=== PATIENT | female | born 1975 | race Caucasian/White ===

== ENCOUNTER 2025-02-18 12:25 | Emergency (ER) | payer MEDICAID, SELFPAY ==
[2025-02-18 12:49] VITALS: BP 147/80; PULSE 84; TEMP 36.6; O2SAT 98; BMI 30.2
--- NOTE | 2025-02-18 12:54 | XR_ITS ---
Examination: CT abdomen and pelvis without contrast. Coronal 3-D reconstructions. Sagittal 2-D reconstructions. Date and time of exam:February 18, 2025 1535 hours Comparison January 23, 2024 INDICATION: Mid abdominal pain and cramping with vomiting today CTDI: vol (mGy): 9.95 DLP: (mGycm): 591 Technique: Axial images of the abdomen have been obtained, 3 mm slice thickness Intravenous contrast material has not been administered. Low dose protocols were performed. One or more of the following dose reduction techniques were used; automated exposure control, adjustment of the mA and/or KV according to patient size, use of iterative reconstruction technique. Findings: No pancreatic or adrenal mass No renal or ureteral calculi, no hydronephrosis Aorta normal size 6 mm fat-containing umbilical hernia Normal appendix No bowel obstruction No diverticulitis Anteverted uterus No adnexal mass Contracted urinary bladder Mild thoracic and lumbar spondylosis IMPRESSION: No acute process in the abdomen or pelvis Consider hepatobiliary sonography follow-up
--- NOTE | 2025-02-18 12:54 | PD.EDRME ---
Rapid Medical Screening Exam RME Arrival date/time: 02/18/25 12:25 49-year-old female with no known medical history presents to the emergency room with a chief complaint of vomiting, 10 out of 10 abdominal pain that began at 9 AM this morning. Patient states she believes she ate something bad. I have greeted and performed a focused initial assessment of this patient. A comprehensive ED assessment and evaluation of the patient, analysis of all test results, and completion of the medical decision making process will be conducted by additional ED providers. Chief Complaint: Nausea/Vomiting/Diarrhea Time Seen by Provider: 02/18/25 12:40 Vital signs reviewed by provider: Yes
[2025-02-18] MEDS: KETOROLAC INJ 60 MG/2 ML VIAL 30 MG IM (13:09)
[2025-02-18] MEDS: ONDANSETRON ODT 4 MG TABRAP PO (13:09)
[2025-02-18 13:41] LABS: Basophils # (Auto) 0.1 Thou/mm3 (0.0-0.2); Basophils % (Auto) 1 % (0-2.5); Eosinophils # (Auto) 0.1 Thou/mm3 (0.0-0.5); Eosinophils % (Auto) 1 % (0-10); Hematocrit 44.5 % (36.0-46.0); Hemoglobin 15.3 g/dL (12.0-16.0); Immature Granulocytes % (Auto) 0 % (0-0); Immature Granulocytes Auto 0.04 Thou/mm3 (0.00-0.00); Lymphocytes % (Auto) 17 % (10-50); Mean Corpuscular HGB Conc 34.4 g/dl (31.0-37.0); Mean Corpuscular Hemoglobin 29.8 pg (25.0-35.0); Mean Corpuscular Volume 87 fL (80-100); Monocytes # (Auto) 0.5 Thou/mm3 (0.0-0.8); Monocytes % (Auto) 4 % (0-12); Neutrophils # (Auto) 9.3 Thou/mm3 (1.8-7.7); Neutrophils % (Auto) 77 % (37-80); Nucleated Red Blood Cell % 0 /100 WBC (0); Platelet Count 635 Thou/mm3 (140-440); RDW Standard Deviation 40.7 fL (36.4-46.3); Red Blood Count 5.14 Miln/mm3 (4.00-5.20)
[2025-02-18 14:04] LABS: Alanine Aminotransferase 33 U/L (10-49); Albumin/Globulin Ratio 1.9 (1.2-2.2); Alkaline Phosphatase 75 U/L (46-116); Anion Gap 10 (7-16); Aspartate Amino Transferase 22 U/L (0-34); BUN/Creatinine Ratio 12 Ratio (12-20); Bilirubin,Total 1.1 mg/dL (0.3-1.2); Blood Urea Nitrogen 11 mg/dL (9-23); Calcium 9.7 mg/dL (8.3-10.6); Calcium (Corrected) 9.7 mg/dL (8.5-10.1); Carbon Dioxide 26.9 mMol/L (20.0-31.0); Chloride 106 mMol/L (98-107); Creatinine (Component) 0.9 mg/dL (0.6-1.3); Estimated Creatinine Clearance 75.6 mL/min (>60); Globulin 2.6 gm/dL (2.3-3.5); Glucose 190 mg/dL (74-106); Lipase 45 U/L (12-53); Osmolality,Calculated 289 (275-295); Potassium 4.1 mMol/L (3.4-5.1); Sodium 143 mMol/L (136-145); Total Protein 7.6 gm/dL (5.7-8.2); eGFR > 60 See Note
[2025-02-18 15:53] LABS: HCG,Qualitative Serum Negative
[2025-02-18 19:41] VITALS: BP 181/110; PULSE 106; RESP 20; TEMP 36.9; O2SAT 98
--- NOTE | 2025-02-18 19:51 | EDNOTE_ITS ---
Nausea/Vomit./Diarrhea-RME/HPI General Chief complaint: Nausea/Vomiting/Diarrhea Stated complaint: CYCLIC VOMITING W/ ABD PAIN Time Seen by Provider: 02/18/25 12:40 Arrival date/time: 02/18/25 12:25 49-year-old female presents to the ED with a complaint of nausea, vomiting, abdominal cramping since 9 AM this morning. She states she has very dry and has been unable to urinate because every time she vomits she urinates. RME / HPI RME / HPI Narrative: 02/18/25 12:25 49-year-old female with no known medical history presents to the emergency room with a chief complaint of vomiting, 10 out of 10 abdominal pain that began at 9 AM this morning. Patient states she believes she ate something bad. I have greeted and performed a focused initial assessment of this patient. A comprehensive ED assessment and evaluation of the patient, analysis of all test results, and completion of the medical decision making process will be conducted by additional ED providers. Related Data Previous Rx's ?Medication ?Instructions ?Recorded albuterol sulfate 90 mcg/actuation 2 inh inhalation QI D PRN shortness 06/01/19 breath activated powder inhaler of breath or wheezing #1 ea prednisone 50 mg tablet 50 mg PO QDAY #4 tabs dicyclomine 20 mg tablet 20 mg PO TID #20 tabs Allergies Allergy/AdvReac Type Severity Reaction Status Date / Time codeine Allergy Severe EYES SWELL Verified 02/18/25 12:28 Review of Systems Review of Systems Systems Reviewed: All systems reviewed, normal except as documented Past Medical History Past Medical History CARDIAC: Positive Hypertension; Negative Cardiac Disorders or Congestive Heart Failure RESPIRATORY: Negative Chronic Obstructive Pulmonary Disease (COPD) or Asthma GENITOURINARY: Negative Renal Disease ENDOCRINE: Negative Diabetes Mellitus Type 1 or Diabetes Mellitus Type 2 HEMATOLOGIC: Negative Sickle Cell Disease PSYCHO/SOCIAL: Positive Recreational Drug Use Social History SMOKING STATUS: Light (< 1 pack/day) ED Exam Narrative Physical exam: Alert 49 year old female, mild acute distress with vomiting. Lungs are clear, no respiratory distress. Regular rate and rhythm. Non-distended abdomen. Course Course Course Narrative: 49-year-old female presents to the ED with a complaint of nausea, vomiting, abdominal cramping since 9 AM this morning. She states she has very dry and has been unable to urinate because every time she vomits she urinates. Alert 49 year old female, mild acute distress with vomiting. Lungs are clear, no respiratory distress. Regular rate and rhythm. Non-distended abdomen. Labs reveal an elevated white count of 12.0, normal H&H, elevated platelets of 635. ANC elevated at 9.3. Chemistry panel reveals normal sodium, potassium, chloride. Normal CO2 and gap. Normal renal function and normal LFTs. Glucose is elevated at 190. Amylase is normal at 45 and urine hCG is negative. Urinalysis reveals turbid yellow urine with a specific gravity of 1.030 with 2+ protein no RBCs or WBCs, 5 epithelial cells and no bacteria. Urine drug screen is positive for marijuana and opiates. CT of the abdomen and pelvis reveals: Findings:No pancreatic or adrenal mass. No renal or ureteral calculi, no hydronephrosis. Aorta normal size. 6 mm fat-containing umbilical hernia. Normal appendix. No bowel obstruction. No diverticulitis. Anteverted uterus. No adnexal mass. Contracted urinary bladder. Mild thoracic and lumbar spondylosis. IMPRESSION: No acute process in the abdomen or pelvis Patient was given Toradol 30 mg IM, ondansetron 4 mg p.o., and Reglan 10 mg p.o. She was then given dicyclomine 20 mg p.o. After evaluation, [facility] bed. Quality Measures none Orders Category Date Time Status CT abdomen pelvis wo con Stat Exams 02/18/25 12:54 Completed CBC Stat Lab 02/18/25 13:10 Completed CMP [Comprehensive Metabolic Panel] Stat Lab 02/18/25 13:10 Completed Drug Screen,Urine Stat Lab 02/18/25 20:03 Completed HCG Qualitative,Urine Stat Lab 02/18/25 20:03 Completed HCG,Qualitative Serum Stat Lab 02/18/25 13:10 Completed Lipase Stat Lab 02/18/25 13:10 Completed UA [Urinalysis] Stat Lab 02/18/25 20:03 Completed Urine Culture Stat Lab 02/18/25 20:03 Received Dicyclomine [Bentyl] Med 02/18/25 19:52 Discontinued 20 mg PO X1 ONE Ketorolac Inj [Toradol Inj] Med 02/18/25 12:54 Discontinued 30 mg IM X1 ONE Metoclopramide [Reglan] Med 02/18/25 12:54 Discontinued 10 mg PO X1 ONE Ondansetron Odt [Zofran Odt] Med 02/18/25 13:05 Discontinued 4 mg PO X1 ONE Vital Signs Vital signs: Vital Signs Temperature 97.9 F 02/18/25 12:49 Pulse Rate 84 02/18/25 12:49 Blood Pressure 147/80 H 02/18/25 12:49 Pulse Oximetry (%) 98 02/18/25 12:49 Oxygen Delivery Method Room Air 02/18/25 12:49 Nausea/Vomiting/Diarrhea MDM Narrative MDM Narrative:: 49-year-old female presents to the ED with a complaint of nausea, vomiting, abdominal cramping since 9 AM this morning. She states she has very dry and has been unable to urinate because every time she vomits she urinates. Alert 49 year old female, mild acute distress with vomiting. Lungs are clear, no respiratory distress. Regular rate and rhythm. Non-distended abdomen. Labs reveal an elevated white count of 12.0, normal H&H, elevated platelets of 635. ANC elevated at 9.3. Chemistry panel reveals normal sodium, potassium, chloride. Normal CO2 and gap. Normal renal function and normal LFTs. Glucose is elevated at 190. Amylase is normal at 45 and urine hCG is negative. Urinalysis reveals turbid yellow urine with a specific gravity of 1.030 with 2+ protein no RBCs or WBCs, 5 epithelial cells and no bacteria. Urine drug screen is positive for marijuana and opiates. CT of the abdomen and pelvis reveals: Findings:No pancreatic or adrenal mass. No renal or ureteral calculi, no hydronephrosis. Aorta normal size. 6 mm fat-containing umbilical hernia. Normal appendix. No bowel obstruction. No diverticulitis. Anteverted uterus. No adnexal mass. Contracted urinary bladder. Mild thoracic and lumbar spondylosis. IMPRESSION: No acute process in the abdomen or pelvis Patient was given Toradol 30 mg IM, ondansetron 4 mg p.o., and Reglan 10 mg p.o. She was then given dicyclomine 20 mg p.o. After evaluation, she was sent to the lobby to wait for an open bed. Patient data External records reviewed:: None Clinical information provided by:: patient Social determinants that could affect healthcare access:: none Patient has the following chronic illnesses:: Previous history of Abdominal Cramping. Marijuana use. How is presenting disease/condition affected by chronic disease/condition?: no chronic disease Evaluation data The following diagnostics were reviewed and interpreted by me:: lab results and radiology exam(s) Lab and/or radiology exams considered but not ordered:: N/A Interpretation Summary: Labs reveal an elevated white count of 12.0, normal H&H, elevated platelets of 635. ANC elevated at 9.3. Chemistry panel reveals normal sodium, potassium, chloride. Normal CO2 and gap. Normal renal function and normal LFTs. Glucose is elevated at 190. Amylase is normal at 45 and urine hCG is negative. Urinalysis reveals turbid yellow urine with a specific gravity of 1.030 with 2+ protein no RBCs or WBCs, 5 epithelial cells and no bacteria. Urine drug screen is positive for marijuana and opiates. CT of the abdomen and pelvis reveals: Findings:No pancreatic or adrenal mass. No renal or ureteral calculi, no hydronephrosis. Aorta normal size. 6 mm fat-containing umbilical hernia. Normal appendix. No bowel obstruction. No diverticulitis. Anteverted uterus. No adnexal mass. Contracted urinary bladder. Mild thoracic and lumbar spondylosis. IMPRESSION: No acute process in the abdomen or pelvis Patient was given Toradol 30 mg IM, ondansetron 4 mg p.o., and Reglan 10 mg p.o. She was then given dicyclomine 20 mg p.o. After evaluation, she was sent to the lobby to wait for an open bed. Patient ultimately ELOPED from the ED waiting room without discharge instructions or prescriptions. Medications / Prescriptions Medications / Prescriptions considered but not ordered:: N/A Medication administrations:: Medication Administration History Discontinued Medications Dicyclomine HCl (Dicyclomine 10 Mg Capsule) 20 mg PO X1 ONE Stop: 02/18/25 19:53 Last Admin: 02/18/25 20:09 Dose: 20 mg Documented By: TANG Ketorolac Tromethamine (Ketorolac Inj 60 Mg/2 Ml Vial) 30 mg IM X1 ONE Stop: 02/18/25 12:55 Last Admin: 02/18/25 13:09 Dose: 30 mg Documented By: NOLVIA Metoclopramide HCl (Metoclopramide 5 Mg Tablet) 10 mg PO X1 ONE Stop: 02/18/25 12:55 Last Admin: 02/18/25 13:09 Dose: Not Given Documented By: NOLVIA Non-Admin Reason: Discontinued Ondansetron HCl (Ondansetron Odt 4 Mg Tabrap) 4 mg PO X1 ONE; Protocol Stop: 02/18/25 13:06 Last Admin: 02/18/25 13:09 Dose: 4 mg Documented By: NOLVIA Patient was given Toradol 30 mg IM, ondansetron 4 mg p.o., and Reglan 10 mg p.o. She was then given dicyclomine 20 mg p.o. Consultations Consultation(s) initiated? (list below): No Diagnosis Nausea Differential Diagnosis: food poisoning, gastroenteritis, drug-induced nausea and vomiting, dehydration and other (SBO, Diverticulitis) Most likely diagnosis given after review of the tests above:: Drug induced nausea and vomiting. Admission Indicated Admission indicated?: not indicated Explain why admission is indicated or not indicated:: Patient is likely stable for discharge, however patient ELOPED from the ED waiting room. Admission Request Was there a request for admission?: No Disposition Plan Disposition Plan: other (specify) (ELOPED) Discharge Plan Plan Patient Disposition: Elopement Discharge Disposition comment: Stable Prescriptions/Referrals Prescriptions/Med Rec: No Action prednisone 50 mg tablet 50 mg PO QDAY Qty: 4 0RF albuterol sulfate 90 mcg/actuation aerosol powdr breath activated 2 inh INH QID PRN (Reason: shortness of breath or wheezing) Qty: 1 2RF dicyclomine 20 mg tablet 20 mg PO TID Qty: 20 0RF Referrals: No Primary/Family,Physician [Primary Care Provider] - In 1 week Problem List Clinical Impression: Abdominal cramping, Intractable cyclical vomiting with nausea Patient/Caregiver Discharge Instructions Print Language: Belarusian PA/AQUARIUM TANK ATTENDANT Supervising Physician PA/AQUARIUM TANK ATTENDANT Supervising Physician: Dr. Hart
[2025-02-18] MEDS: DICYCLOMINE 10 MG CAPSULE 20 MG PO (20:09)
[2025-02-18 20:15] LABS: Collection Type, Urine Clean Catch; RBC,Urine 0 /hpf (0-3); WBC,Urine 0 /hpf (0-5)
[2025-02-18 20:27] LABS: Bilirubin,Urine Negative (Negative); Blood,Urine Negative (Negative); Clarity,Urine Turbid (Clear/Hazy); Color,Urine Yellow (Lt Yel-Yel); Glucose, Urine Trace (Negative); HCG Qualitative,Urine Negative; Hyaline Casts,Urine < 1 /hpf (0-1); Ketones,Urine Trace (Negative); Leukocyte Esterase,Urine Negative (Negative); Nitrite,Urine Negative (Negative); Protein,Urine 2+ (Neg - Trace); Squamous Epithelial Cell,Urine 5 /hpf (0-5)
[2025-02-18 20:44] LABS: Amphetamine/Methamp Scrn,U Negative (Negative); Barbiturate Screen,Urine Negative (Negative); Benzodiazepines Screen,Urine Negative (Negative); Benzoylecgonine Screen, Ur Negative (Negative); Fentanyl Screen,Urine Negative (Negative); Opiate Screen,Urine Positive (Negative); THC Screen,Urine Positive (Negative)
--- NOTE | 2025-02-19 00:16 | PC.NURSE ---
PT ELOPED THE ER PER SECURITY
== END 2025-02-19 00:17 | disposition left against medical advice (07) ==
PROVIDERS: Nurse Practitioner Family; Emergency Provider Emergency Medicine
DX: R11.2 Nausea with vomiting, unspecified (principal); Z53.29 Procedure and treatment not carried out because of patient's decision for other reasons; R10.9 Unspecified abdominal pain
CPT/HCPCS: 36415; 74176; 80053; 80307; 81001; 81025; 83690; 84703; 85025; 87086; 96372; 99284; J1885; Q0162; A9270

== ENCOUNTER 2025-07-26 17:54 | Emergency (ER) | payer MEDICAID, SELFPAY ==
--- NOTE | 2025-07-26 17:56 | EKG_ITS ---
[facility] Test Date: 2025-07-26 Pat Name: RENAE ABDUL Department: Room: - Gender: Female [employer]: : 1975 Requested By: Robin Martin Order Number: [id number] Reading MD: Robin Martin Measurements Intervals Ledbetter Rate: 88 P: 49 MT: 121 QRS: 56 QRSD: 94 T: 9 QT: 408 QTc: 496 Interpretive Statements SINUS RHYTHM NONSPECIFIC ST & T-WAVE ABNORMALITY No previous ECG available for comparison /store/S0/[id number].pdf
--- NOTE | 2025-07-26 17:58 | EDNOTE_ITS ---
ED General RME/HPI General Chief complaint: Nausea/Vomiting/Diarrhea Stated complaint: ABD PAIN Time Seen by Provider: 07/26/25 17:55 Arrival date/time: 07/26/25 17:54 CC: Left upper quadrant abdominal pain with nausea vomiting HPI ongoing for the past 8 days. Patient presents via EMS who report persistent vomiting and route IV was established patient given Zofran. Patient states she has been noncompliant with all medications for hypertension secondary to the nausea and vomiting prior history of similar events states she has not gotten any precise answers on what causes it. Patient is awake alert oriented moderate discomfort but not in any acute distress. Localized pain is 6-8 on a 10 scale. Patient denies alcohol states she smokes 3 cigarettes a day, takes Gummies THC but last 1 was 3 days ago and denies any other street. Related Data Home Medications ?Medication ?Instructions ?Recorded ?Confirmed fluoxetine 20 mg capsule 40 mg PO DAILY 07/26/2511/18 lisinopril 20 mg tablet 20 mg PO DAILY 07/26/2511/18 Allergies Allergy/AdvReac Type Severity Reaction Status Date / Time codeine Allergy Severe EYES SWELL Verified 07/26/25 18:19 Review of Systems Review of Systems Narrative Review of Systems: GEN: No fever, no chills, no weight loss EYES: No discharge, no visual changes, no pain HEENT: No ear pain, no congestion, no sore throat PULM: No shortness of breath, no cough, no congestion CV: No chest pain, no dyspnea on exertion, no palpitations GI: No nausea, no vomiting, no diarrhea, + pain, no constipation : No frequency, no urgency, no dysuria MUSC/SKEL: No joint pain, no back pain SKIN: No rash PSYCH: No hallucinations, no depression HEME/LYMPH: No easy bleeding or bruising tendencies NEURO: No weakness, no headache Past Medical History Past Medical History CARDIAC: Positive Hypertension; Negative Cardiac Disorders or Congestive Heart Failure RESPIRATORY: Negative Chronic Obstructive Pulmonary Disease (COPD) or Asthma GENITOURINARY: Negative Renal Disease ENDOCRINE: Negative Diabetes Mellitus Type 1 or Diabetes Mellitus Type 2 HEMATOLOGIC: Negative Sickle Cell Disease PSYCHO/SOCIAL: Positive Recreational Drug Use Social History SMOKING STATUS: Light (< 1 pack/day) ED Exam Narrative Physical exam: [General: In mild discomfort but not in any acute distress Head normocephalic HEENT: Within acceptable limits Neck is supple nontender Chest equal chest rise nontender to palpation Respiratory: Clear to auscultation no wheezes crackles or rubs CV: Rate rhythm is regular no murmurs rubs or clicks Abdomen left upper quadrant epigastric tenderness with palpation no right upper quadrant or lower quadrant abdominal pain. Back: No CVA tenderness no spinous process tenderness from cervical spine thoracic and lumbar spine Skin: Intact no petechiae rash induration ulceration or crepitus Extremities: Moving all extremity against resistance cap refill less than 2 seconds neurosensory intact Neuro: Awake alert oriented x3 Glascow coma 15 no focal deficits] Course Course Course Narrative: No acute finding including leukocytosis pancreatitis ultrasound shows no choledocholithiasis. Patient's urine is positive for methamphetamines patient be discharged home with hypokalemia methamphetamine abuse and abdominal pain Quality Measures none Orders Category Date Time Status EKG (ED ONLY) *Do not use* NOW Care 07/26/25 17:56 Completed Saline [Insert IV] NOW Care 07/26/25 17:55 Completed EKG (ED Only) Stat Exams 07/26/25 17:56 Draft US gall bladder Stat Exams 07/26/25 18:58 Taken B-Type Natriuretic Peptide Stat Lab 07/26/25 18:06 Completed CBC Stat Lab 07/26/25 18:06 Completed Comprehensive Metabolic Panel Stat Lab 07/26/25 18:06 Completed Drug Screen,Urine Stat Lab 07/26/25 21:07 Completed Lipase Stat Lab 07/26/25 18:06 Completed Magnesium Stat Lab 07/26/25 18:06 Completed Partial Thromboplastin Time Stat Lab 07/26/25 18:06 Completed Prothrombin Time with INR Stat Lab 07/26/25 18:06 Completed Urinalysis, C/S if Indicated Stat Lab 07/26/25 21:07 Completed Dicyclomine Inj [Bentyl Inj] Med 07/26/25 17:57 Discontinued 10 mg IM X1 ONE POTASSIUM CHL 10% Liq 15 ML Med 07/26/25 21:58 Discontinued 40 meq GT X1 ONE POTASSIUM CHL 10% Liq 15 ML Med 07/26/25 21:58 Discontinued 40 meq PO X1 ONE Potassium Chloride [K-Dur] Med 07/26/25 21:43 Discontinued 40 meq PO X1 ONE Ringers Lactated 1000 ml [Lactated Ringers] 1,000 ml Med 07/26/25 17:56 Discontinued IV 999 mls/hr Vital Signs Vital signs: Vital Signs Temperature 98.1 F 07/26/25 18:08 Pulse Rate 89 07/26/25 18:08 Respiratory Rate 17 07/26/25 18:08 Blood Pressure 181/101 H 07/26/25 18:08 Pulse Oximetry (%) 98 07/26/25 18:08 Oxygen Delivery Method Room Air 07/26/25 18:08 Discharge Plan Plan Patient Disposition: HOME (Self Care) Patient condition on transfer: Stable Prescriptions/Referrals Prescriptions/Med Rec: No Action fluoxetine 20 mg capsule 40 mg PO DAILY Patient Comments: TAKE TWO CAPSULES BY MOUTH EVERY DAY lisinopril 20 mg tablet 20 mg PO DAILY Patient Comments: TAKE ONE TABLET BY MOUTH EVERY DAY FOR BLOOD PRESSURE Referrals: Jen Min PA-C [Primary Care Provider, Family Practice] - In 1 week Problem List Clinical Impression: Abdominal pain, Hypokalemia, Methamphetamine abuse Patient/Caregiver Discharge Instructions Other Activity Instructions:: There is no acute finding in your workup, stop taking methamphetamines as this may contributed to your abdominal pain. Eat more foods i.e. green vegetables that have potassium in there. Follow-up with your primary care doctor. Education Materials: Abdominal Pain, Understanding Methamphetamine ... Print Language: Hungarian Stand Alone Forms: Jazmín Award Info., Patient Portal Info Letter GISSEL Supervising Physician GISSEL Supervising Physician: Robin Perry ENP [facility] Clinical Information Provided by: patient and EMS Medical Records reviewed [facility] and EMS Meds/Rx considered, not ordered None Labs/Rad/Tests considered, not ordered None Chronic Illness/Social Conditions which may negatively complicate care or outcome(s)-explain: None or not applicable EKG Interpretation EKG #1: EKG Interpretation: EKG performed at 1815 shows a ventricular rate of 88 [place] interval 121 QRS of 94 QTc of 454 this is sinus rhythm nonspecific ST segment changes. No old EKG for comparison. Labs Labs: interpreted by ok Lab(s) Interpretation(s): CBC shows no acute leukocytosis no anemia elevated platelet count. Coags within acceptable limits CMP shows potassium 3.1 chloride of 95. Glucose of 180. T. bili of 1.3 AST 44 ALT 86 alk phos of 65 BNP less than 20 UDS is positive for methamphetamines Urine is negative for UTI. Imaging Imaging interpretation: interpreted by ok Imaging Interpretation(s): Ultrasound shows no choledocholithiasis no cholelithiasis. Mild sludge. Medication Administration(s) Medication Administration History Discontinued Medications Dicyclomine HCl (Dicyclomine Inj 10 Mg/Ml 2ml Vial) 10 mg IM X1 ONE Stop: 07/26/25 17:58 Last Admin: 07/26/25 19:58 Dose: 10 mg Documented By: CCT Lactated Ringer's (Lactated Ringers) 1,000 mls @ 999 mls/hr IV .Q1H1M ONE Stop: 07/26/25 18:56 Last Infusion: 07/26/25 21:01 Dose: Infused Documented By: Admin: 07/26/25 19:58 Dose: 999 mls/hr Documented By: CCT Potassium Chloride (Potassium Chloride 20 Meq Tabcr) 40 meq PO X1 ONE Stop: 07/26/25 21:44 Last Admin: 07/26/25 22:02 Dose: Not Given Documented By: CCT Non-Admin Reason: Discontinued Potassium Chloride (Potassium Chloride 10% 20 Meq/15 Ml Udc) 40 meq GT X1 ONE Stop: 07/26/25 21:59 Last Admin: 07/26/25 22:02 Dose: Not Given Documented By: CCT Non-Admin Reason: Discontinued Potassium Chloride (Potassium Chloride 10% 20 Meq/15 Ml Udc) 40 meq PO X1 ONE Stop: 07/26/25 21:59 Last Admin: 07/26/25 22:10 Dose: 40 meq Documented By: CCT Diagnosis Differential Diagnosis ED Complaint MDM: Choledocholithiasis cholelithiasis pancreatitis
[2025-07-26 18:08] VITALS: BP 181/101; PULSE 89; RESP 17; TEMP 36.7; O2SAT 98
[2025-07-26 18:13] VITALS: PULSE 115; RESP 24; O2SAT 99; BMI 30.5
[2025-07-26 18:19] LABS: Basophils # (Auto) 0.1 Thou/mm3 (0.0-0.2); Basophils % (Auto) 1 % (0-2.5); Eosinophils # (Auto) 0.0 Thou/mm3 (0.0-0.5); Eosinophils % (Auto) 0 % (0-10); Hematocrit 46.5 % (36.0-46.0); Hemoglobin 15.7 g/dL (12.0-16.0); Immature Granulocytes Auto 0.04 Thou/mm3 (0.00-0.00); Lymphocytes # (Auto) 2.3 Thou/mm3 (1.0-4.8); Lymphocytes % (Auto) 21 % (10-50); Mean Corpuscular HGB Conc 33.8 g/dl (31.0-37.0); Mean Corpuscular Hemoglobin 29.6 pg (25.0-35.0); Mean Corpuscular Volume 88 fL (80-100); Monocytes # (Auto) 1.2 Thou/mm3 (0.0-0.8); Monocytes % (Auto) 11 % (0-12); Neutrophils # (Auto) 7.0 Thou/mm3 (1.8-7.7); Neutrophils % (Auto) 66 % (37-80); Nucleated Red Blood Cell # 0.00 Thou/mm3 (0.00-0.00); Nucleated Red Blood Cell % 0 /100 WBC (0); Platelet Count 569 Thou/mm3 (140-440); RDW Standard Deviation 38.5 fL (36.4-46.3); Red Blood Count 5.30 Miln/mm3 (4.00-5.20); White Blood Count 10.7 Thou/mm3 (3.6-11.0)
[2025-07-26 18:21] VITALS: BP 156/99; PULSE 91; RESP 18; TEMP 36.7; O2SAT 97
[2025-07-26 18:31] LABS: INR 1.1 (0.9-1.3); Partial Thromboplastin Time 26.7 Seconds (22.0-36.0); Prothrombin Time 11.5 Seconds (9.0-12.2)
[2025-07-26 18:38] LABS: B-Type Natriuretic Peptide < 20 pg/mL (0-100)
[2025-07-26 18:39] LABS: Alanine Aminotransferase 86 U/L (10-49); Albumin, Serum 4.5 gm/dL (3.5-5.0); Albumin/Globulin Ratio 1.7 (1.2-2.2); Alkaline Phosphatase 65 U/L (46-116); Anion Gap 12 (7-16); Aspartate Amino Transferase 44 U/L (0-34); BUN/Creatinine Ratio 8 Ratio (12-20); Bilirubin,Total 1.3 mg/dL (0.3-1.2); Blood Urea Nitrogen 10 mg/dL (9-23); Calcium 9.8 mg/dL (8.3-10.6); Calcium (Corrected) 9.8 mg/dL (8.5-10.1); Carbon Dioxide 30.4 mMol/L (20.0-31.0); Chloride 95 mMol/L (98-107); Creatinine (Component) 1.2 mg/dL (0.6-1.3); Estimated Creatinine Clearance 56.4 mL/min (>60); Globulin 2.7 gm/dL (2.3-3.5); Glucose 180 mg/dL (74-106); Lipase 36 U/L (12-53); Magnesium 2.0 mg/dL (1.6-2.6); Osmolality,Calculated 277 (275-295); Potassium 3.1 mMol/L (3.4-5.1); Sodium 137 mMol/L (136-145); Total Protein 7.2 gm/dL (5.7-8.2); eGFR 54 See Note
--- NOTE | 2025-07-26 18:58 | XR_ITS ---
Examination: Abdomen sonogram, Limited Date and time of exam: July 26, 2025, 2035 hours INDICATIONS: Elevated bilirubin on laboratory examination today Technique: Real-time alvarez scale transabdominal sonographic images of the upper abdomen obtained. Findings: Gallbladder sludge Negative for gallstones Normal gallbladder wall 0.1 cm Common bile duct 0.4 cm Pancreatic head 1.2 cm Liver 14.2 cm fatty infiltration Normal hepatopetal portal venous flow Patent IVC IMPRESSION: Gallbladder sludge, negative for cholelithiasis, negative for cholecystitis Normal common bile duct
[2025-07-26 19:52] VITALS: BP 159/108; PULSE 85; PULSE 86; RESP 14; TEMP 37; O2SAT 95
[2025-07-26] MEDS: RINGERS LACTATED 1000 ML 1,000 ML 999 ML IV (19:58)
[2025-07-26] MEDS: DICYCLOMINE INJ 10 MG/ML 2ML VIAL IM (19:58)
--- NOTE | 2025-07-26 20:45 | PC.NURSE ---
Ultrasound at bedside
[2025-07-26 21:20] LABS: Collection Type, Urine Clean Catch
[2025-07-26 21:27] LABS: Bilirubin,Urine Negative (Negative); Blood,Urine Negative (Negative); Clarity,Urine Turbid (Clear/Hazy); Color,Urine Yellow (Lt Yel-Yel); Culture Indicated,Urine Not Indicated; Glucose, Urine Negative (Negative); Ketones,Urine Negative (Negative); Leukocyte Esterase,Urine Negative (Negative); Nitrite,Urine Negative (Negative); PH,Urine 6.0 (5.0-7.0); Protein,Urine Negative (Neg - Trace); RBC,Urine 2 /hpf (0-3); Specific Gravity,Urine 1.009 (1.001-1.035); Squamous Epithelial Cell,Urine 28 /hpf (0-5); Urobilinogen,Urine 2.0 mg/dL (0.0-1.0); WBC,Urine 3 /hpf (0-5)
[2025-07-26 21:34] LABS: Amphetamine/Methamp Scrn,U Positive (Negative); Barbiturate Screen,Urine Negative (Negative); Benzodiazepines Screen,Urine Negative (Negative); Benzoylecgonine Screen, Ur Negative (Negative); Fentanyl Screen,Urine Negative (Negative); Opiate Screen,Urine Negative (Negative); THC Screen,Urine Positive (Negative)
[2025-07-26 21:47] VITALS: BP 160/96; PULSE 83; RESP 18; TEMP 37.2; O2SAT 97
[2025-07-26] MEDS: POTASSIUM CHLORIDE 10% 20 MEQ/15 ML UDC 40 MEQ PO (22:10)
[2025-07-26 22:30] VITALS: BP 160/96; PULSE 83; RESP 17; TEMP 37; O2SAT 99
== END 2025-07-26 22:30 | disposition home or self-care (01) ==
PROVIDERS: Registered Nurse General Practice; Emergency Provider Emergency Medicine; PCP Physician Assistant
DX: R19.7 Diarrhea, unspecified (principal); R11.2 Nausea with vomiting, unspecified; E87.6 Hypokalemia; F15.10 Other stimulant abuse, uncomplicated; I10 Essential (primary) hypertension
CPT/HCPCS: 36415; 76705; 80053; 80307; 81001; 83690; 83735; 83880; 84132; 85025; 85610; 85730; 93005; 96360; 96372; 99283; J0500; J7120; A9270

== ENCOUNTER 2025-09-06 07:53 | Emergency (ER) | payer MEDICAID, SELFPAY ==
[2025-09-06 07:56] VITALS: BP 171/90; PULSE 113; RESP 19; TEMP 37; O2SAT 98; BMI 28.5
[2025-09-06 08:00] VITALS: PULSE 78; O2SAT 100
--- NOTE | 2025-09-06 08:02 | EDNOTE_ITS ---
ED Psych RME/HPI General Chief Complaint: General Adult/Misc Complain Stated Complaint: MENTAL HEALTH EVALUATION Time Seen by Provider: 09/06/25 08:00 Arrival date/time: 09/06/25 07:53 RME / HPI RME / HPI Narrative: DR. SALAZAR MAIN ED EVALUATION: 50 y/o female with Hx of Schizophrenia, Anxiety, Recreational Drug Use, and Bipolar Disorder LEELEE from the street presents to ED on a 5150 hold placed by [employer] after being found walking for approximately 8 hours from [place] to [facility]. Patient states she was simply lost while on her way to her son's home here in [place]. Patient has no medical complaints. Denies SI/HI. Related Data Home Medications ?Medication ?Instructions ?Recorded ?Confirmed fluoxetine 20 mg capsule 40 mg PO DAILY 07/26/2511/18 lisinopril 20 mg tablet 20 mg PO DAILY 07/26/2511/18 Allergies Allergy/AdvReac Type Severity Reaction Status Date / Time codeine Allergy Severe EYES SWELL Verified 07/26/25 18:19 Review of Systems Review of Systems Systems Reviewed: All systems reviewed, normal except as documented Past Medical History Past Medical History CARDIAC: Positive Hypertension PSYCHO/SOCIAL: Positive Schizophrenia, Recreational Drug Use, Bipolar Disorder and Anxiety Surgical History SURGICAL: Positive Section (X3) Social History SMOKING STATUS: Current some day smoker ED Exam Narrative Physical exam: GENERAL APPEARANCE: alert and oriented x 4, well-developed, well-nourished, no acute distress VITALS: All vitals were reviewed and the pulse ox is 98% on room air, which is normal according to my interpretation. HEENT: normocephalic, atraumatic NECK: supple LUNGS: no respiratory distress, normal effort HEART: good peripheral perfusion ABDOMEN: non distended EXTREMITIES: atraumatic NEUROLOGIC: awake; alert and oriented x4; cranial nerves II-XII grossly intact PSYCHIATRIC: appropriate mood and affect SKIN: warm, dry, normal color; no rashes Course Course Course Narrative: Patient was placed in observation due to hold placed by [employer], at 08:09 09/06/2025. Treatment plan includes psychiatric consult, reassessments, and possible placement into psychiatric facility. The patient had access and provided personal hygiene, shower, food, water, and daily medications. Patient has been medically cleared. Pending consult with healthcare social worker. Observation ended at 09/06/2025 at 10:25 hours with improvement in condition. Crisis has cleared the patient and will be discharged home with outpatient follow up. Quality Measures none Orders Category Date Time Status One-to-one observation NOW Care 09/06/25 08:06 Active One-to-one observation NOW Care 09/06/25 08:17 Active Suicide precautions NOW Care 09/06/25 08:17 Active Diet Regular Diet 09/06/25 Breakfast Active Drug Screen,Urine Stat Lab 09/06/25 08:24 Completed Vital Signs Vital signs: Vital Signs Temperature 98.6 F 09/06/25 07:56 Pulse Rate 113 H 09/06/25 07:56 Respiratory Rate 19 09/06/25 07:56 Blood Pressure 171/90 H 09/06/25 07:56 Pulse Oximetry (%) 98 09/06/25 07:56 Oxygen Delivery Method Room Air 09/06/25 07:56 Psych MDM Narrative MDM Narrative:: Scribe Attestation: Sharlene Cerna, am scribing for and in the presence of Dr. Salazar. Provider Notation: Although this document has been carefully reviewed, there may still be some phonetic and other typographical errors. These errors are purely grammatical due to imperfections in the software program and should not be construed in any way to compromise the substance of the patient's medical care during this visit. Patient data External records reviewed:: [facility] previous records (Reviewed prior ED records from 07/26/25. Patient was seen for Abdominal pain.) and EMS form Clinical information provided by:: patient and EMS Social determinants that could affect healthcare access:: mental health (Schizophrenia, Anxiety, Recreational Drug Use, Bipolar Disorder) Patient has the following chronic illnesses:: HTN, Schizophrenia, Anxiety, Recreational Drug Use, Bipolar Disorder How is presenting disease/condition affected by chronic disease/condition?: exacerbated by Evaluation data The following diagnostics were reviewed and interpreted by me:: lab results Lab and/or radiology exams considered but not ordered:: None Interpretation Summary: LABS Toxicology Screen demonstrates presence of methamphetamine and marijuana. Medications / Prescriptions Medications or Prescriptions considered but not ordered:: None Medication administrations:: See above if any Consultations Consultation(s) initiated? (list below): No Diagnosis Psych Differential Diagnosis: acute psychosis, chronic schizophrenia, bipolar disorder, depression, drug-induced psychotic disorder and acute anxiety Most likely diagnosis given after review of the tests above:: Methamphetamine Use Admission Indicated Admission indicated?: not indicated Explain why admission is indicated or not indicated:: Patient does not meet admission criteria. Admission Request Was there a request for admission?: No Disposition Plan Disposition Plan: Discharge Discharge Attestation Discharge Attestation: The patient and all family members were given an opportunity to ask questions and understood the discharge instructions. Discharge instructions specifically effects, indications for sooner follow up or return to the emergency department, and the expected course of current diagnosis. Patient condition: Stable Discharge Plan Plan Patient Disposition: HOME (Self Care) Prescriptions/Referrals Prescriptions/Med Rec: No Action fluoxetine 20 mg capsule 40 mg PO DAILY Patient Comments: TAKE TWO CAPSULES BY MOUTH EVERY DAY lisinopril 20 mg tablet 20 mg PO DAILY Patient Comments: TAKE ONE TABLET BY MOUTH EVERY DAY FOR BLOOD PRESSURE Referrals: Roc Corado FNP [Primary Care Provider] - In 1 week Problem List Clinical Impression: Methamphetamine use Patient/Caregiver Discharge Instructions Education Materials: Understanding Methamphetamine ... Print Language: Panamanian Stand Alone Forms: [employer] Award Info., Patient Portal Info Letter
--- NOTE | 2025-09-06 08:13 | PC.NURSE ---
pt brought in by ems for [employer] hold per ems patient was walking from [place] to [place] and got lost patient denies any harm to her self or any SI stating she just wants a ride home
[2025-09-06 08:44] LABS: Amphetamine/Methamp Scrn,U Positive (Negative); Barbiturate Screen,Urine Negative (Negative); Benzodiazepines Screen,Urine Negative (Negative); Benzoylecgonine Screen, Ur Negative (Negative); Fentanyl Screen,Urine Negative (Negative); Opiate Screen,Urine Negative (Negative); THC Screen,Urine Positive (Negative)
--- NOTE | 2025-09-06 09:29 | PC.CC ---
Patient is a 50 year-old female who presents to the hospital on a 5150-hold unknown as the appropriate box was not marked by [facility] Deputy Sheppard. It was reported by Deputy Sheppard that patient had left her residences and had no way of getting back inside. He reports that patient was seeing a body in [place]. CHILD AND FAMILY SERVICES WORKER, Phuong, made [id number] contact to complete mental health evaluation. CHILD AND FAMILY SERVICES WORKER introduced herself, role in the agency, reason for visit, and discussed limits of confidentiality. Patient appeared alert and oriented to self, location, and situation. Patient made appropriate eye contact and was cooperative. Patient did not appear to be having paranoia or delusions at the time of encounter. Patient reports last night she left her residences at approximately 9 pm and when she returned her significant other, Nicola Poon had locked her out. Patient then left and continued to walk and ended up in [place]. Patient attempted to knock on people?s home doors but no one would open. She continued to walk until she got to a local gas station where she requested 911 be contacted. Per patient, she does not understand why they put her on a 5150-hold. Patient disclosed she last used ?meth? yesterday. CHILD AND FAMILY SERVICES WORKER inquired if patient had a phone why had she not contacted her SO and she reports she does have a phone but it does not have service. Patient reports she has been completing her own ADLs and ambulating independently. She reports she did not sleep last night but has been sleeping and the night before she slept 4 hours. Patient disclosed she has mental health Schizophrenia, Bipolar Disorder, Generalized Anxiety, and gets panic attacks. Patient is connected to [facility] but is not medication compliant. Patient has an appointment on September 21, 2025. CHILD AND FAMILY SERVICES WORKER, attempted to educate on medication compliance but reported she self-medicates with substance and knows this does not help her mental health. At the time of encounter patient is denying suicidal and homicidal ideations, visual and auditory hallucinations. Patient denied past suicide attempts. Patient provided verbal consent to make telephone contact with her significant other, Nicola Poon but he did not answer the phone and went to voicemail. Patient is willing to engage in safety plan and reports there is no reason for her to be on a hold. Upon clinical consultation, with CHILD AND FAMILY SERVICES WORKER, Karlike Jarrett patient does not meet criteria for 5150-hold to be upheld and hold will be rescinded by this tech writer. GERARD, discussed with patient that hold would be rescinded and the importance of her attending her appointment with outpatient mental health on September 21, 2025. Patient was provided with breakfast and appropriate shoes hers were wet. Patient was provided with [place] [facility] and offered transportation, but stated her son Derrick lives around the corner from the hospital and would be walking to his home. Patient declined transportation.
[2025-09-06 10:27] VITALS: BP 153/85; PULSE 108; RESP 16; TEMP 36.8; O2SAT 99
== END 2025-09-06 10:28 | disposition home or self-care (01) ==
PROVIDERS: Emergency Provider Emergency Medicine
DX: Z04.6 Encounter for general psychiatric examination, requested by authority (principal); F15.90 Other stimulant use, unspecified, uncomplicated; F20.9 Schizophrenia, unspecified; F31.9 Bipolar disorder, unspecified; F41.9 Anxiety disorder, unspecified
CPT/HCPCS: 80307; 96127; 99282

== ENCOUNTER 2025-09-06 13:31 | Emergency (ER) | payer SELFPAY ==
[2025-09-06 13:34] VITALS: PULSE 102; RESP 20; O2SAT 99; BMI 28.5
== END 2025-09-06 14:22 | disposition left against medical advice (07) ==
LOC: SERX 14:24
PROVIDERS: Emergency Provider Emergency Medicine
DX: Z53.21 Procedure and treatment not carried out due to patient leaving prior to being seen by health care provider (principal)
CPT/HCPCS: 99281

== ENCOUNTER 2025-09-06 21:20 | Emergency (ER) | payer MEDICAID, SELFPAY ==
[2025-09-06 21:21] VITALS: PULSE 104; RESP 20; O2SAT 98
[2025-09-06 21:37] VITALS: BP 166/99; PULSE 107; RESP 18; TEMP 36.6; O2SAT 98; BMI 28.4
--- NOTE | 2025-09-06 21:46 | PD.EDRME ---
Rapid Medical Screening Exam RME Arrival date/time: 09/06/25 21:20 This is a case of 51-year-old female who have history of hypertension and anxiety came in in the emergency room feeling anxious and have suicidal ideation with no plan assistance of the symptoms this patient decided to start consulted in the emergency ROOM Chief Complaint: Anxiety Time Seen by Provider: 09/06/25 21:31 Vital signs: Vital Signs Temperature 97.9 F 09/06/25 21:37 Pulse Rate 107 H 09/06/25 21:37 Respiratory Rate 18 09/06/25 21:37 Blood Pressure 166/99 H 09/06/25 21:37 Pulse Oximetry (%) 98 09/06/25 21:37 Oxygen Delivery Method Room Air 09/06/25 21:37 Exam: Patient is anxious with suicidal Clinical Impression: Suicidal ideation anxiety
[2025-09-06 22:09] LABS: Basophils # (Auto) 0.1 Thou/mm3 (0.0-0.2); Basophils % (Auto) 1 % (0-2.5); Eosinophils # (Auto) 0.0 Thou/mm3 (0.0-0.5); Eosinophils % (Auto) 0 % (0-10); Hematocrit 42.4 % (36.0-46.0); Hemoglobin 13.9 g/dL (12.0-16.0); Immature Granulocytes Auto 0.03 Thou/mm3 (0.00-0.00); Lymphocytes # (Auto) 2.4 Thou/mm3 (1.0-4.8); Lymphocytes % (Auto) 20 % (10-50); Mean Corpuscular HGB Conc 32.8 g/dl (31.0-37.0); Mean Corpuscular Hemoglobin 29.7 pg (25.0-35.0); Mean Corpuscular Volume 91 fL (80-100); Monocytes # (Auto) 1.1 Thou/mm3 (0.0-0.8); Monocytes % (Auto) 8 % (0-12); Neutrophils # (Auto) 8.8 Thou/mm3 (1.8-7.7); Neutrophils % (Auto) 71 % (37-80); Nucleated Red Blood Cell # 0.00 Thou/mm3 (0.00-0.00); Nucleated Red Blood Cell % 0 /100 WBC (0); Platelet Count 599 Thou/mm3 (140-440); RDW Standard Deviation 41.7 fL (36.4-46.3); Red Blood Count 4.68 Miln/mm3 (4.00-5.20); White Blood Count 12.4 Thou/mm3 (3.6-11.0)
[2025-09-06 22:17] LABS: Amphetamine/Methamp Scrn,U Positive (Negative); Barbiturate Screen,Urine Negative (Negative); Benzodiazepines Screen,Urine Negative (Negative); Benzoylecgonine Screen, Ur Negative (Negative); Fentanyl Screen,Urine Negative (Negative); Opiate Screen,Urine Negative (Negative); THC Screen,Urine Positive (Negative)
[2025-09-06 22:28] LABS: Acetaminophen < 2.0 mcg/mL (10.0-20.0); Alanine Aminotransferase 29 U/L (10-49); Albumin, Serum 5.0 gm/dL (3.5-5.0); Albumin/Globulin Ratio 1.8 (1.2-2.2); Alkaline Phosphatase 66 U/L (46-116); Anion Gap 12 (7-16); Aspartate Amino Transferase 48 U/L (0-34); BUN/Creatinine Ratio 15 Ratio (12-20); Bilirubin,Total 1.8 mg/dL (0.3-1.2); Blood Urea Nitrogen 20 mg/dL (9-23); Calcium 10.0 mg/dL (8.3-10.6); Calcium (Corrected) 10.0 mg/dL (8.5-10.1); Carbon Dioxide 26.1 mMol/L (20.0-31.0); Chloride 105 mMol/L (98-107); Creatinine (Component) 1.3 mg/dL (0.6-1.3); Estimated Creatinine Clearance 48.4 mL/min (>60); Globulin 2.8 gm/dL (2.3-3.5); Glucose 131 mg/dL (74-106); Osmolality,Calculated 289 (275-295); Potassium 3.9 mMol/L (3.4-5.1); Salicylate < 3.0 mg/dL; Sodium 143 mMol/L (136-145); Total Protein 7.8 gm/dL (5.7-8.2); eGFR 49 See Note
[2025-09-06 22:29] LABS: Alcohol, Blood Medical < 3.0 mg/dL (0-10.0)
--- NOTE | 2025-09-06 22:41 | PD.EDANX ---
ED Anxiety RME/HPI General Chief Complaint: Anxiety Stated Complaint: ANXIOUS Time Seen by Provider: 09/06/25 21:31 Arrival date/time: 09/06/25 21:20 Limitations: no limitations RME / HPI RME / HPI narrative: 09/06/25 21:20 This is a case of 51-year-old female who have history of hypertension and anxiety came in in the emergency room feeling anxious and have suicidal ideation with no plan assistance of the symptoms this patient decided to start consulted in the emergency ROOM Dr. Arana?s Main ED Evaluation: 50yo female with a history of schizophrenia, bipolar disorder presents to the ED for a chief complaint of anxiety. Patient states she has not been sleeping for the last couple days. She endorses not feeling safe and I feel like I'm going to hurt myself . Denies any active plan. Patient endorses having auditory and visual hallucinations. Denies any other associated symptoms. Related Data Home Medications ?Medication ?Instructions ?Recorded ?Confirmed fluoxetine 20 mg capsule 40 mg PO DAILY 07/26/25 07/26/25 lisinopril 20 mg tablet 20 mg PO DAILY 07/26/25 07/26/25 Allergies Allergy/AdvReac Type Severity Reaction Status Date / Time codeine Allergy Severe EYES SWELL Verified 09/06/25 21:20 Review of Systems Review of Systems Systems Reviewed: All systems reviewed, normal except as documented ED Exam General Limitations: Present no limitations General appearance: Present alert, in no apparent distress and other (resting comfortably) Head Head exam: Present atraumatic Eye Eye exam: Present normal appearance, PERRL and EOMI ENT ENT exam: Present normal exam, normal oropharynx and mucous membranes moist Neck Neck exam: Present normal inspection, full ROM and trachea midline Chest Chest inspection: Present normal inspection and symmetric chest wall rise Respiratory Respiratory exam: Present normal lung sounds bilaterally Cardiovascular Cardiovascular exam: Present regular rate, normal rhythm and normal heart sounds Abdominal Exam Abdominal exam: Present soft; Absent distention Extremities Exam Extremities exam: Present normal inspection and full ROM Back Exam Back exam: Present full ROM Neurological Exam Neurological exam: Present alert, oriented X3 and other (No focal neurodeficits) Psychiatric Psychiatric exam: Present normal affect, normal mood and other (Responding to internal stimuli) Skin Skin exam: Present warm, dry, intact and normal color Course Quality Measures none Orders Category Date Time Status Acetaminophen Stat Lab 09/06/25 21:57 Completed Alcohol, Blood Medical Stat Lab 09/06/25 21:57 Completed CBC Stat Lab 09/06/25 21:57 Completed CMP [Comprehensive Metabolic Panel] Stat Lab 09/06/25 21:57 Completed Drug Screen,Urine Stat Lab 09/06/25 22:00 Completed Salicylate Stat Lab 09/06/25 21:57 Completed Vital Signs Vital signs: Vital Signs Temperature 97.9 F 09/06/25 21:37 Pulse Rate 107 H 09/06/25 21:37 Respiratory Rate 18 09/06/25 21:37 Blood Pressure 166/99 H 09/06/25 21:37 Pulse Oximetry (%) 98 09/06/25 21:37 Oxygen Delivery Method Room Air 09/06/25 21:37 Anxiety MDM Narrative MDM Narrative: Scribe Attestation: 09/06/25 - Fouzia Cerna am scribing for and in the presence of Dr. Arana. Patient is a 50-year-old female with medical history notable for schizophrenia, polysubstance use, homelessness is in emergency department with thoughts of self-harm. Patient has been to the emergency department 3 times in the last day, states that she has been behaving abnormally, she has been walking around, and feels off. Had not used methamphetamines in a few days. States that she is hearing voices. Takes her psychiatric medications. States that she is concerned that she is not herself if she leaves the emergency department. Patient without any chest pain abdominal pain headache shortness of breath no fever. Do not suspect acute regarding cause for patient's presentation. Symptoms are most consistent with decompensation of her baseline psychiatric condition. Patient at this time is hemodynamically stable not distressed. Placed on a1799, order labs for medical clearance will have manager social responsibility evaluate the patient in the morning. Labs with evidence of leukocytosis 12.4, platelets 599 otherwise no acute hematologic no significant metabolic abnormalities, patient has a T. bili of 1.8, previously 1.3, patient does not have any abdominal pain. Given the uptrending bilirubin ordered right upper quadrant ultrasound. X-rays positive for marijuana and methamphetamines. Patient signed out to oncoming provider pending right upper quadrant ultrasound evaluation by social work. Patient data External records reviewed:: [facility] previous records (Per chart review, patient was seen here earlier this morning for methamphetamine abuse.) Clinical information provided by:: patient Social determinants that could affect healthcare access:: mental health Patient has the following chronic illnesses:: schizophrenia, bipolar disorder How is presenting disease/condition affected by chronic disease/condition?: exacerbated by Evaluation data The following diagnostics were reviewed and interpreted by me:: lab results Lab and/or radiology exams considered but not ordered:: none Interpretation Summary: See MDM. Medications / Prescriptions Medications or Prescriptions considered but not ordered:: none Medication administrations:: see above, if any Consultations Consultation(s) initiated? (list below): No Diagnosis Differential diagnosis anxiety: panic disorder, acute anxiety and other (schizophrenia, bipolar disorder, malingering) Most likely diagnosis given after review of the tests above:: see clinical impression below Admission Indicated Admission indicated?: not indicated Admission Request Was there a request for admission?: No Disposition Plan Disposition Plan: other (specify) (Signed out to Dr. Valencia at 6 AM.) Discharge Plan Prescriptions/Referrals Prescriptions/Med Rec: No Action fluoxetine 20 mg capsule 40 mg PO DAILY Patient Comments: TAKE TWO CAPSULES BY MOUTH EVERY DAY lisinopril 20 mg tablet 20 mg PO DAILY Patient Comments: TAKE ONE TABLET BY MOUTH EVERY DAY FOR BLOOD PRESSURE Referrals: No Primary/Family,Physician [Primary Care Provider] - In 1 week Problem List Clinical Impression: Thoughts of self harm, Methamphetamine use, Homeless Patient/Caregiver Discharge Instructions Print Language: French
[2025-09-06 23:00] LABS: HCG,Qualitative Serum Negative
--- NOTE | 2025-09-07 05:58 | XR_ITS ---
Examination: Abdomen sonogram, Limited Date and time of exam: September 07, 2025, 0809 hours INDICATIONS: Lower back pain, elevated bilirubin on laboratory examination 1 week ago Technique: Real-time alvarez scale transabdominal sonographic images of the upper abdomen obtained. Findings: Normal gallbladder Common bile duct prominent 0.7 cm no definite stones Pancreatic head 2.5 cm Liver 14.8 cm fatty infiltration Normal hepatopetal portal venous flow Patent IVC IMPRESSION: Enlarged common bile duct, consider MRCP follow-up
--- NOTE | 2025-09-07 06:22 | EDNOTE_ITS ---
Emergency Room Addendum Addendum Narrative: 0600: Care assumed from Dr. Arana, the previous shift emergency physician. Past medical, surgical, social and family history reviewed. Vitals and home medications reviewed. I will assume the care of the patient at this time, pending abdominal ultrasound and medical clearance for mental health evaluation. Please refer to the emergency department record for history and examination from initial visit.?The following addendum documentation note is intended to reflect any pending information, findings, or radiology results not included in the patient?s initial chart. 1058a: The abdominal ultrasound report shows an enlarged common bile duct. The total bilirubin is 1.8. Repeated the CBC and CMP. Repeat CBC shows no leukocytosis and CMP remains unchanged. Patient is medically cleared. Notified by our delinquency prevention social worker the patient denies any suicidal or homicidal ideation. States she is requesting placement into a home. State the patient has been accepted at [facility] and an Uber will be arranged once discharged. Per the delinquency prevention social worker, the patient was uncooperative with the [facility] assessment. State they will reassess again. Patient has been reassessed by [facility] and will be transported via Uber. During my watch, the patient has remained stable.
[2025-09-07 06:47] VITALS: BP 131/77; PULSE 96; RESP 16; TEMP 36.9; O2SAT 97
[2025-09-07 07:38] VITALS: BP 135/89; PULSE 106; RESP 18; TEMP 37.1; O2SAT 97
[2025-09-07 10:25] VITALS: BP 134/81; PULSE 101; RESP 19; TEMP 36.9; O2SAT 97
[2025-09-07 11:12] LABS: Basophils # (Auto) 0.1 Thou/mm3 (0.0-0.2); Basophils % (Auto) 2 % (0-2.5); Eosinophils # (Auto) 0.1 Thou/mm3 (0.0-0.5); Eosinophils % (Auto) 1 % (0-10); Hematocrit 41.9 % (36.0-46.0); Hemoglobin 13.7 g/dL (12.0-16.0); Immature Granulocytes Auto 0.01 Thou/mm3 (0.00-0.00); Lymphocytes # (Auto) 1.8 Thou/mm3 (1.0-4.8); Lymphocytes % (Auto) 24 % (10-50); Mean Corpuscular HGB Conc 32.7 g/dl (31.0-37.0); Mean Corpuscular Hemoglobin 29.5 pg (25.0-35.0); Mean Corpuscular Volume 90 fL (80-100); Monocytes # (Auto) 0.7 Thou/mm3 (0.0-0.8); Monocytes % (Auto) 9 % (0-12); Neutrophils # (Auto) 4.9 Thou/mm3 (1.8-7.7); Neutrophils % (Auto) 64 % (37-80); Nucleated Red Blood Cell # 0.00 Thou/mm3 (0.00-0.00); Nucleated Red Blood Cell % 0 /100 WBC (0); Platelet Count 475 Thou/mm3 (140-440); RDW Standard Deviation 41.4 fL (36.4-46.3); Red Blood Count 4.65 Miln/mm3 (4.00-5.20); White Blood Count 7.6 Thou/mm3 (3.6-11.0)
[2025-09-07 11:29] LABS: Alanine Aminotransferase 28 U/L (10-49); Albumin, Serum 4.6 gm/dL (3.5-5.0); Albumin/Globulin Ratio 1.8 (1.2-2.2); Alkaline Phosphatase 59 U/L (46-116); Anion Gap 9 (7-16); Aspartate Amino Transferase 32 U/L (0-34); BUN/Creatinine Ratio 16 Ratio (12-20); Bilirubin,Total 1.9 mg/dL (0.3-1.2); Blood Urea Nitrogen 14 mg/dL (9-23); Calcium 9.9 mg/dL (8.3-10.6); Calcium (Corrected) 9.9 mg/dL (8.5-10.1); Carbon Dioxide 27.3 mMol/L (20.0-31.0); Chloride 107 mMol/L (98-107); Creatinine (Component) 0.9 mg/dL (0.6-1.3); Estimated Creatinine Clearance 69.9 mL/min (>60); Globulin 2.5 gm/dL (2.3-3.5); Glucose 105 mg/dL (74-106); Osmolality,Calculated 285 (275-295); Potassium 4.6 mMol/L (3.4-5.1); Sodium 143 mMol/L (136-145); Total Protein 7.1 gm/dL (5.7-8.2); eGFR > 60 See Note
--- NOTE | 2025-09-07 14:20 | PC.CC ---
Patient is a 50 year old female brought in by EMT after patient was found wondering. Patient currently resides with children father in [place].Patient was evaluated by the ED physician and placed on a 1799. GERARD Landaverde and ALIZA Valladares met with patient at bedside to evaluate patient mental health services needs. Patient presented as tearful, disorganized, oriented x 3 (person, place and thing). Patient reports unwillingness to live. Patient has hx of suicide attempt last attempt was years ago. Patient attempted to overdose on somosa (medication). Patient has a hx of mental health services. Patient has been diagnosed with schizophrenia, bipolar, anxiety and panic attack. Patient reports that she sees a therapist once a month. Patient has been prescribed Prozac but stopped taking medication due to not being able to obtain medication. Patient is not currently seeing a psychiatrist but does see her PCP at [facility]. Patient continues to endorse SI with a plan to overdose. Patient would like to find a facility like [facility] which she has been accepted in the past but declined because patient felt that she was not ready. Team had patient speak with [facility]. Patient was first not answering questions but the team at [facility] spoke to her once again and accepted patient. Per Dr. Valencia, she will be removing patient from the 179 hold and felt that patient should not have placed on the hold since patient was not endorsing Suicidal ideation/homicidal ideation, auditory hallucination or visual hallucination. Team will transport patient to [facility].
--- NOTE | 2025-09-07 14:42 | PC.CC ---
VIDEO EFFECTS EDITOR attempted to speak with patient to set up transportation to [facility]. Patient was given permission to smoke. VIDEO EFFECTS EDITOR went outside, VIDEO EFFECTS EDITOR was not able to locate patient. Team looked in patient room and other areas but patient was not found. Patient eloped. VIDEO EFFECTS EDITOR will contact [facility] to inform them that patient is longer needing the bed. Patient has eloped.
--- NOTE | 2025-09-07 14:51 | PC.CC ---
GERARD Landaverde was asked to speak with patient regarding transportation to [facility]. Patient was given permission to smoke. INSURANCE LOSS ADJUSTER went outside to speak with patient, at which time patient was not located. GERARD Landaverde and ALIZA Valladares attempt to find patient but at this time patient eloped. GERARD contacted [facility] admission and informed them that at this time patient is no longer in ED at [place] and would no longer need the bed.
--- NOTE | 2025-09-07 15:42 | PC.CC ---
GERARD Landaverde was able to locate patient in the waiting room. Patient agreed to go to [facility]. ACCOUNTS PAYABLE LEAD contacted [facility] spoke with Melyssa who was willing to accept patient. ALIZA was able to reserve an UBER left for patient. Patient was given her discharge paperwork when attempting to locate patient. Patient had eloped once again. ACCOUNTS PAYABLE LEAD contacted [facility] and informed them that at this time patient would not need bed.
== END 2025-09-07 16:01 | disposition home or self-care (01) ==
PROVIDERS: Emergency Medicine; Nurse Practitioner Family; Emergency Provider Emergency Medicine
DX: R45.851 Suicidal ideations (principal); K83.8 Other specified diseases of biliary tract; F15.90 Other stimulant use, unspecified, uncomplicated; Z59.00 Homelessness unspecified
CPT/HCPCS: 36415; 76705; 80053; 80307; 80320; 80329; 84703; 85025; 96127; 99283; G0480